=== PATIENT | male | born 1960 | race Two or more races ===

== ENCOUNTER 2021-03-10 19:59 | Emergency (ER) | payer OTHER ==
[~2021-03-10] VITALS: Ht 170.2 cm; Wt 78.9 kg
[~2021-03-10 19:59] MED LIST: OMEPRAZOLE20 MG PO
[2021-03-10] MEDS ORDERED: ZOFRAN4 MG PO (22:04)
[2021-03-10] MEDS ORDERED: HYDROCODON-ACE1 EA10 PO (22:04)
== END 2021-03-10 22:24 | disposition home or self-care (01) ==
LOC: ED 19:59
DX: N13.2 Hydronephrosis with renal and ureteral calculous obstruction (principal)
CPT/HCPCS: 74176; 80053; 81001; 85025; 96374; 96375; 99284-25; J1885; J2405